=== PATIENT | male | born 1950 | race Caucasian/White ===

== ENCOUNTER 2017-12-31 14:00 | Inpatient (IN) | payer OTHER, MEDICAID ==
[~2017-12-31] VITALS: Ht 170.2 cm; Wt 62.1 kg
[~2017-12-31 14:00] MED LIST: ALBU6.7H IH; AMLO2.5T29 PO; ASA; ASCO250T7 PO; ATEN25TA PO; ATOR40TA28 PO; BENA40TA9 PO; CARB25DR OP; CLIN300C9 PO; CYCL30DR OP; DOCU-119 PO; DOXA2TAB PO; DULO30CA2 PO; FENT1PAT5 TD; FERR324T4 PO; FLUT16H NASAL; GABA-531 PO; GLIP10TA9 PO; GLUCOPHAGE; LACT10SO PO; LOTENSIN; OMEP20CA10 PO; PERCT10 PO; PROC5TAB12 PO; SENN8.6T90 PO; TYLENOL#3; VICODIN; VITAD400 PO; [UNRECOGNIZED DRUG - OTHER]
[2017-12-31] MEDS ORDERED: LORazepam 2 MG TABLET PO PRN (16:45)
[2017-12-31] MEDS ORDERED: ZOLPIDEM TARTRATE 10 MG TABLET PO PRN (16:45)
[2017-12-31] MEDS ORDERED: HALOPERIDOL 5 MG TABLET PO PRN (16:45)
[2017-12-31] MEDS ORDERED: CloNIDine HCL 0.1 MG TABLET PO PRN (22:30)
[2017-12-31] MEDS ORDERED: DOCUSATE SODIUM 100 MG CAPSULE PO PRN (22:30)
[2017-12-31] MEDS ORDERED: PETROLATUM,WHITE 71 GM JELLY TP PRN (22:30)
[2017-12-31] MEDS ORDERED: MAGNESIUM HYDROXIDE SUSPENSION 30 ML UDCUP PO PRN (22:30)
[2017-12-31] MEDS ORDERED: MAG HYDROX/AL HYDROX/SIMETH ES 30 ML SUSPENSION UDCUP PO PRN (22:30)
[2017-12-31] MEDS ORDERED: LOPERAMIDE HCL 2 MG CAPSULE PO PRN (22:30)
[2017-12-31] MEDS ORDERED: GuaiFENesin/D-METHORPHAN [SUGAR-FREE] 200-20MG/10 ML SYRUP UDCUP PO PRN (22:30)
[2017-12-31] MEDS ORDERED: ALBUTEROL SULFATE HFA 90 MCG/PUFF 8 GM INHALER IH PRN (22:30)
[2017-12-31] MEDS ORDERED: IBUPROFEN 400 MG TABLET PO PRN (22:30)
[2017-12-31] MEDS ORDERED: NICOTINE 14 MG/24 HOUR PATCH TD PRN (22:30)
[2017-12-31] MEDS ORDERED: ONDANSETRON HCL 4 MG TABLET PO PRN (22:30)
[2017-12-31] MEDS ORDERED: ACETAMINOPHEN 325 MG TABLET PO PRN (22:30)
[2018-01-01 07:03] LABS: BASOPHILS % (AUTO) 1.8 % (0.0-2.0); HEMATOCRIT 32.7 % (41-53); HEMOGLOBIN 10.9 g/dL (13.5-17.5); LYMPHOCYTES # (AUTO) 2.1 K/uL (1.0-4.8); LYMPHOCYTES % (AUTO) 29.2 % (22.0-44.0); MEAN CORPUSCULAR HEMOGLOBIN 27.9 pg (26.0-34.0); MEAN CORPUSCULAR HGB CONC 33.4 G/dL (31.0-37.0); MEAN CORPUSCULAR VOLUME 84 fL (80-100); MONOCYTES # (AUTO) 0.8 K/uL (0.1-1.0); MONOCYTES % (AUTO) 11.1 % (2.0-9.0); NEUTROPHILS # (AUTO) 3.8 K/uL (1.8-7.7); NEUTROPHILS % (AUTO) 52.9 % (40.0-70.0); PLATELET COUNT (AUTO) 255 K/uL (150-450); RED BLOOD CELL COUNT(AUTO) 3.91 MIL/uL (4.50-5.90); RED CELL DISTRIBUTION WIDTH 14.7 % (11.5-14.5)
[2018-01-01 07:18] LABS: HEMOGLOBIN A1C 7.4 % (4.5-6.2)
[2018-01-01 07:23] LABS: ALANINE AMINOTRANSFERASE 20 U/L (12-78); ALBUMIN 3.4 g/dL (3.4-5.0); ALKALINE PHOSPHATASE 63 U/L (46-116); ANION GAP 10 mmol/L (8-16); ASPARTATE AMINOTRANSFERASE 20 U/L (15-37); BILIRUBIN,TOTAL 0.6 mg/dL (0.1-1.0); CALCIUM, TOTAL 9.1 mg/dL (8.8-10.5); CARBON DIOXIDE 26 mmol/L (22-29); CHLORIDE 106 mmol/L (98-107); CHOLESTEROL 169 mg/dL (131-200); CREATININE 1.02 mg/dL (0.60-1.30); GLOMERULAR FILTR. RATE CALC > 60 mL/min (>60); GLUCOSE,RANDOM 95 mg/dL (70-110); HDL CHOLESTEROL 42 mg/dL (40-60); LDL CHOL (CALC.) 113 mg/dL (0-130); SODIUM SERUM 142 mmol/L (136-145); THYROID STIMULATING HORMONE 0.51 uIU/mL (0.36-3.74); TOTAL PROTEIN, SERUM 6.7 g/dL (6.4-8.2); TRIGLYCERIDES 69 mg/dL (15-150); UREA NITROGEN, BLOOD 17 mg/dL (7-18)
[2018-01-01 07:52] LABS: POTASSIUM 2.8 mmol/L (3.5-5.1)
[2018-01-01] MEDS ORDERED: POTASSIUM CHLORIDE 20 MEQ ER TABLET PO ONE (08:15)
[2018-01-01 08:39] VITALS: BP 174/78
[2018-01-01] MEDS ORDERED: LACTULOSE 20 GM/30 ML SOLUTION UDCUP PO PRN (11:00)
[2018-01-01] MEDS ORDERED: FLUTICASONE PROPIONATE 50 MCG/SPRAY 16 GM NASAL SPRAY NASAL PRN (11:00)
[2018-01-01 15:50] VITALS: BP 141/76
[2018-01-01] MEDS: CHOLECALCIFEROL (VIT D3) 1,000 UNITS TABLET PO SCH (17:37)
[2018-01-01 19:24] VITALS: BP 132/59
[2018-01-01] MEDS: TraMADol HCL 50 MG TABLET PO PRN (19:24)
[2018-01-01 20:24] VITALS: BP 125/84
[2018-01-02] MEDS: CHOLECALCIFEROL (VIT D3) 1,000 UNITS TABLET PO SCH ×2 (07:08→16:59)
[2018-01-02 09:21] VITALS: BP 153/69
[2018-01-02 09:56] VITALS: BP 153/69
[2018-01-02] MEDS: AmLODIPine BESYLATE 2.5 MG TABLET PO SCH (10:01)
[2018-01-02] MEDS: TraMADol HCL 50 MG TABLET PO PRN ×2 (10:01→17:00)
[2018-01-02] MEDS: ATORVASTATIN CALCIUM 40 MG TABLET PO SCH (10:02)
[2018-01-02] MEDS: ESCITALOPRAM OXALATE 10 MG TABLET PO SCH (10:02)
[2018-01-02 17:00] VITALS: BP 147/66
[2018-01-03] MEDS: CHOLECALCIFEROL (VIT D3) 1,000 UNITS TABLET PO SCH ×2 (06:39→16:13)
[2018-01-03 08:14] VITALS: BP 156/76
[2018-01-03] MEDS: ESCITALOPRAM OXALATE 10 MG TABLET PO SCH (08:48)
[2018-01-03] MEDS: ATORVASTATIN CALCIUM 40 MG TABLET PO SCH (08:48)
[2018-01-03] MEDS: AmLODIPine BESYLATE 2.5 MG TABLET PO SCH (08:48)
[2018-01-03 17:00] VITALS: BP 158/78
[2018-01-03 19:00] VITALS: BP 148/77
[2018-01-03] MEDS: TraMADol HCL 50 MG TABLET PO PRN (19:00)
[2018-01-04] MEDS: CHOLECALCIFEROL (VIT D3) 1,000 UNITS TABLET PO SCH (06:28)
[2018-01-04 06:54] VITALS: BP 148/73
[2018-01-04 08:15] VITALS: BP 160/72
[2018-01-04] MEDS: ESCITALOPRAM OXALATE 10 MG TABLET PO SCH (08:21)
[2018-01-04] MEDS: ATORVASTATIN CALCIUM 40 MG TABLET PO SCH (08:21)
[2018-01-04] MEDS: AmLODIPine BESYLATE 2.5 MG TABLET PO SCH (08:22)
[2018-01-04] MEDS ORDERED: ESCI10TA PO (11:06)
[2018-01-04] MEDS ORDERED: AMLO2.5T3 PO (11:08)
[2018-01-04] MEDS ORDERED: ATOR40TA28 PO (11:09)
[2018-01-04] MEDS ORDERED: VITAD1000 PO (11:11)
== END 2018-01-04 15:06 | disposition home or self-care (01) | DRG 885 ==
LOC: EMS 14:01 → 3EI 21:30
PROVIDERS: ADMIT Psychiatry & Neurology Child & Adolescent Psychiatry; ATTEND Psychiatry & Neurology Child & Adolescent Psychiatry
DX: F33.2 Major depressive disorder, recurrent severe without psychotic features (principal); R45.851 Suicidal ideations; D64.9 Anemia, unspecified; E11.9 Type 2 diabetes mellitus without complications; E55.9 Vitamin D deficiency, unspecified; E78.5 Hyperlipidemia, unspecified; E87.6 Hypokalemia; G89.29 Other chronic pain; I10 Essential (primary) hypertension; K21.9 Gastro-esophageal reflux disease without esophagitis; K59.00 Constipation, unspecified; Z85.528 Personal history of other malignant neoplasm of kidney; Z90.5 Acquired absence of kidney; Z79.899 Other long term (current) drug therapy
CPT/HCPCS: 83036; 84132; 84443; 97116; 97161; 97165; 97530; 97535; 99285